=== PATIENT | male | born 1990 | race Caucasian/White ===

== ENCOUNTER 2021-08-13 12:41 | Emergency (ER) | payer OTHER ==
[2021-08-13 14:37] LABS: HEMOGLOBIN 16.2 gm/dl (14.0-17.5); RED BLOOD COUNT 5.54 M/UL (4.20-5.50); WHITE BLOOD COUNT 8.5 K/UL (4.5-11.0)
[2021-08-13 15:13] LABS: BUN/CREATININE RATIO 10 (0-10)
== END 2021-08-13 17:01 | disposition home or self-care (01) ==
LOC: ER1 12:41
PROVIDERS: Physician Assistant
DX: J06.9 Acute upper respiratory infection, unspecified (principal); Z20.822 Contact with and (suspected) exposure to COVID-19; I10 Essential (primary) hypertension
CPT/HCPCS: 71045; 80053; 82550; 82553; 83605; 83874; 84484; 85025; 87040; 87081; 87880; 93005; 99285; U0002